=== PATIENT | female | born 1965 ===

== ENCOUNTER 2016-11-25 13:39 | Emergency (ER) | payer OTHER ==
--- NOTE | 2016-11-25 14:15 | EDPHY ---
H & P Smoking Status: Never smoked Time Seen by Provider: 11/25/16 13:59 HPI/ROS: CHIEF COMPLAINT: Abdominal pain HISTORY OF PRESENT ILLNESS: The patient is a 51 year old female presenting with ongoing right upper quadrant pain for the past 2 months. Her pain started out intermittently, but for the past 2 weeks it has remained constant. Last night pain became more severe. The radiates to the center of her abdomen and up her chest. Associated with nausea and decreased oral intake. She had a CT scan in September was normal. She had ultrasound and blood work done 11/18/16 that were both normal. She has been referred to Dr. Austin, but has not set up an appointment. Denies vomiting or diarrhea. REVIEW OF SYSTEMS: Aside from elements discussed in the HPI, a comprehensive 10-point review of systems was reviewed and is negative. (Yen Kumar) Past Medical/Surgical History: Hysterectomy, Spinal stenosis (Yen Kumar) Social History: Parents are . Brother suddenly of heart failure. (Yen Kumar) Physical Exam: General Appearance: Alert, no distress Eyes: Pupils equal and round, no conjunctival pallor or injection ENT, Mouth: Mucous membranes moist Neck: Normal inspection Respiratory: Lungs are clear to auscultation Cardiovascular: Regular rate and rhythm Gastrointestinal: Moderate right upper quadrant tenderness Neurological: A&O, nonfocal, normal gait Skin: Warm and dry, no rash Extremities: Nontender, no pedal edema Psychiatric: Mood and affect normal (Yen Kumar) Constitutional: Initial Vital Signs Temperature (C) 36.6 C 11/25/16 13:45 Heart Rate 92 11/25/16 13:45 Respiratory Rate 18 11/25/16 13:45 Blood Pressure 130/110 H 11/25/16 13:45 O2 Sat (%) 98 11/25/16 13:45 O2 Delivery Mode Room Air Allergies/Adverse Reactions: Penicillins Allergy (Verified 11/25/16 13:43) Sulfa (Sulfonamide Antibiotics) Allergy (Verified 11/25/16 13:43) Home Medications: Medication Instructions Recorded Atorvastatin Calcium 11/25/16 Cymbalta 11/25/16 GABAPENTIN 11/25/16 Hydrocodone/APAP 5/325 [Challis 1 - 2 tab PO Q4H PRN #15 tab 11/25/16 5/325] Levothyroxine 11/25/16 Lisinopril 11/25/16 Ondansetron Odt [Zofran Odt 4 mg 4 mg PO Q4 PRN #10 tab 11/25/16 (*)] traZODone 11/25/16 Medical Decision Making - Diagnostics Imaging: Study: X-ray of the chest was obtained. Results: No acute disease. Images were interpreted by me. I viewed the images myself on the PACS system. (Yen Kumar) ED Course/Re-evaluation: Patient presents with persistent right upper quadrant pain, with a prior normal ultrasound and CT scan. HIDA scan ordered to rule cholecystitis and will be performed at 5:00 p.m.. IV was established. Patient received Toradol 30 mg, 4mg Zofran IV, and 1L normal saline. This patient was signed over at shift change to Dr. Herrera. The plan is for her to a HIDA scan at 5:00 p.m., followed by IV pain medications as needed. If the HIDA scan is normal, she will be discharged home to follow up with GI. ( Yen Kumar) Differential Diagnosis: Differential diagnosis includes though it is not limited to appendicitis, cholecystitis, diverticulitis, pyelonephritis, bowel perforation, small bowel obstruction. (Yen Kumar) Other Provider: I assumed care of this patient from Dr. Kumar at 3:00 p.m.. At that time the patient was awaiting HIDA scan that was schedule for 5:00 p.m.. HIDA scan was completed and reported to me by Dr. Payan as negative/normal. I relayed these results to the patient. She has had an extensive workup for her right upper quadrant abdominal pain. She now plans to follow up with Gastroenterology. She will be discharged from the emergency department with a prescription for opiate pain medication. On examination at discharge her abdomen is soft and tender in the right upper quadrant, no guarding or peritoneal signs. She does not appear toxic or otherwise ill. She is comfortable returning home. (Naa Herrera) - Data Points Laboratory Results: Laboratory Results 11/25/16 14:24 11/25/16 14:24 Medications Given: Discontinued Medications Acetaminophen/Hydrocodone Bitart (Challis 5/325mg Prepack#6) 1 btl TAKEHOME EDNOW ONE Stop: 11/25/16 20:01 Last Admin: 11/25/16 20:22 Dose: 1 btl Sodium Chloride (Ns) 1,000 mls @ 0 mls/hr IV ONCE ONE PRN Reason: Wide Open Stop: 11/25/16 14:17 Last Admin: 11/25/16 14:46 Dose: 1,000 mls Ketorolac Tromethamine (Toradol) 30 mg IVP EDNOW ONE Stop: 11/25/16 14:38 Last Admin: 11/25/16 14:46 Dose: 30 mg Morphine Sulfate (Morphine) 4 mg IVP EDNOW ONE Stop: 11/25/16 14:17 Last Admin: 11/25/16 14:47 Dose: Not Given Ondansetron HCl (Zofran) 4 mg IVP EDNOW ONE Stop: 11/25/16 14:17 Last Admin: 11/25/16 14:46 Dose: 4 mg Departure - Departure Disposition: Home, Routine, Self-Care Clinical Impression: Abdominal pain Condition: Good Instructions: Abdominal Pain (ED) Referrals: Carlos Alberto Corrigan DO [Primary Care Provider] - As per Instructions Win Austin MD [Medical Doctor] - As per Instructions Prescriptions: Hydrocodone/APAP 5/325 [Challis 5/325] 1 - 2 tab PO Q4H PRN #15 tab PRN Reason: Pain, Moderate Ondansetron Odt [Zofran Odt 4 mg (*)] 4 mg PO Q4 PRN #10 tab PRN Reason: Nausea Report Scribed for: Yen Kumar Report Scribed by: Yvette Velez Date of Report: 11/25/16 Time of Report: 14:07 Physician Review and Approval Statement: 11/25/16 14:07 Portions of this note were transcribed by a medical practice administrator. I personally performed the history, physical exam, and medical decision-making; and confirmed the accuracy of the information in the transcribed note. (Yen Kumar)
[2016-11-25] MEDS ORDERED: ONDANSETRON 4 MG/2 ML VIAL IVP ONE (14:16)
[2016-11-25] MEDS ORDERED: NS 1,000 ML IV ONE (14:16)
[2016-11-25] MEDS ORDERED: KETOROLAC 30 MG/1 ML SDV IVP ONE (14:37)
[2016-11-25 14:39] LABS: % IMMATURE GRANULYOCYTES 0.2 % (0.0-1.1); ABSOLUTE IMMATURE GRANULOCYTES 0.01 10^3/uL (0.00-0.10); ADD DIFF? NO; ADD MORPH? NO; ADD SCAN? NO; ATYPICAL LYMPHOCYTE FLAG 10 (0-99); FRAGMENT RBC FLAG 0 (0-99); HEMATOCRIT 41.1 % (38.0-47.0); HEMOGLOBIN 14.1 g/dL (12.6-16.3); LEFT SHIFT FLG 0 (0-99); LIPEMIA HEMOLYSIS FLAG 90 (0-99); MEAN CELL HEMOGLOBIN 30.9 pg (27.9-34.1); MEAN CELL HEMOGLOBIN CONCENTR. 34.3 g/dL (32.4-36.7); MEAN CELL VOLUME 90.1 fL (81.5-99.8); MEAN PLATELET VOLUME 9.1 fL (8.7-11.7); PLATELET CLUMPS FLAG 0 (0-99); PLATELET COUNT 294 10^3/uL (150-400); RED BLOOD CELL COUNT 4.56 10^6/uL (4.18-5.33); RED CELL DISTRIBUTION WIDTH 12.9 % (11.5-15.2)
--- NOTE | 2016-11-25 14:49 | DX ---
PA and Lateral Chest November 25, 2016 Indication: Chest pain Findings: Lungs are well-aerated and clear. No edema, consolidation or effusion. No pneumoperitoneum. Heart size normal. Screws overlie the low cervical spine. Thoracic spine has mild dextrocurvature. Impression: Clear lungs. No acute process.
[2016-11-25 14:52] LABS: ALANINE AMINOTRANSFERASE 45 IU/L (9-52); ALBUMIN 4.2 g/dL (3.5-5.0); ALKALINE PHOSPHATASE 63 IU/L (38-126); ANION GAP 12 mEq/L (8-16); ASPARTATE AMINOTRANSFERASE 19 IU/L (14-46); BILIRUBIN,TOTAL 0.7 mg/dL (0.1-1.4); BILIRUBIN-CONJUGATED 0.2 mg/dL (0.0-0.5); BILIRUBIN-UNCONJUGATED 0.5 mg/dL (0.0-1.1); CALCIUM 9.6 mg/dL (8.5-10.4); CARBON DIOXIDE 28 mEq/l (22-31); CHLORIDE 102 mEq/L (97-110); CREATININE 0.9 mg/dL (0.6-1.0); GLOMERULAR FILTRATION RATE > 60; GLUCOSE 87 mg/dL (70-100); POTASSIUM 4.3 mEq/L (3.5-5.2); SODIUM 142 mEq/L (134-144); TOTAL PROTEIN 7.1 g/dL (6.3-8.2)
--- NOTE | 2016-11-25 14:54 | CPEKG ---
Heart Rate: 80 RR Interval: 750 P-R Interval: 132 QRSD Interval: 78 QT Interval: 392 QTC Interval: 453 P Clarissa: 52 QRS Clarissa: 15 T Wave Clarissa: 47 EKG Severity - NORMAL ECG - EKG Impression: SINUS RHYTHM Electronically Signed By: Yen Kumar 25-Nov-2016 15:03:52
[2016-11-25] MEDS ORDERED: SINCALIDE 5 MCG VIAL IJ ONE (16:42)
[2016-11-25 18:00] VITALS: RESP 20; TEMP 97.9; O2SAT 94
--- NOTE | 2016-11-25 19:29 | NM ---
Nuclear Medicine Hepatobiliary Scan with Gallbladder Ejection Fraction Clinical History: 51-year-old female with severe right upper quadrant pain, nausea, and report of a n ormal sonogram. Evaluate for gallbladder dyskinesia. Radiopharmaceutical: 5.8 mCi of IV technetium 99m Choletec. Medical Pharmaceutical: 1.6 mcg of IV Kinevac, slowly infused over 30 minutes. Comparison Study: Dictated report of a right upper quadrant abdominal sonogram from [place], [place], dated November 18, 2016. Technique: After the uncomplicated intravenous menstruation of the radiopharmaceutical, anterior imag ing of the right upper quadrant of the abdomen was performed, before and then after the intravenous a dministration of the cholecystokinin. A time-activity curve was plotted, and a gallbladder ejection f raction was calculated. Findings: HEPATOBILIARY SCAN: There is prompt homogeneous uptake by the liver. The gallbladder begins to fill b y 3 to 4 minutes, and small bowel is also visualized. There is therefore no evidence of acute or coffee shop manager nickie cholecystitis, or of cystic or common bile duct obstruction. There is no biliary-gastric reflux. GALLBLADDER EJECTION FRACTION: There is prompt washout on the time-activity curve with a gallbladder ejection fraction of 86% (normal range should be above 35%). There is therefore no evidence of gallbl adder dyskinesia. Impression: Normal studies. Results were called to Dr. Naa Herrera. A test result has been communicated to a licensed care provider and documented in [employer], 7:27:05 PM , 11/25/2016, [employer] Message ID [id number].
[2016-11-25] MEDS ORDERED: HYDROCOD/APAP 5/325 PREPACK#6 BTL TAKEHOME ONE (20:00)
[2016-11-25 20:24] VITALS: BP 134/85; PULSE 86
== END 2016-11-25 20:24 | disposition home or self-care (01) ==
DX: R10.11 Right upper quadrant pain (principal); Z90.49 Acquired absence of other specified parts of digestive tract
CPT/HCPCS: 71020; 78227; 93005; 96361; 96374; 96375; 99285; A9537; J1885; J2405